=== PATIENT | male | born 1970 | race Caucasian/White ===

== ENCOUNTER 2017-09-08 13:17 | Emergency (ER) | payer BC | END 2017-09-08 13:50 | disposition home or self-care (01) | LOC: ER 13:17 | DX: K64.4 Residual hemorrhoidal skin tags (principal) | CPT/HCPCS: 99283 ==

== ENCOUNTER 2017-09-11 11:27 | Inpatient (IN) | payer BC ==
[2017-09-11] MEDS ORDERED: PROCHLORPERAZINE 25 MG SUPP.RECT. PR (11:45)
[2017-09-11] MEDS ORDERED: ACETAMINOPHEN 325 MG TABLET. PO (11:45)
[2017-09-11] MEDS ORDERED: CALCIUM CARBONATE 500 MG TAB.CHEW PO (11:45)
[2017-09-11] MEDS ORDERED: PROCHLORPERAZINE 10 MG/2 ML VIAL. IV ×2 (11:45→17:00)
[2017-09-11] MEDS ORDERED: oxyCODONE IR 5 MG TABLET PO (11:45)
[2017-09-11] MEDS ORDERED: ZOLPIDEM 5 MG TABLET. PO (11:45)
[2017-09-11] MEDS ORDERED: MAGNESIUM HYDROXIDE 2,400 MG/30 ML ORAL.SUSP. PO (11:45)
[2017-09-11] MEDS ORDERED: MAG HYDROX/ALUMINUM HYD/SIMETH 30 ML ORAL.SUSP PO (11:45)
[2017-09-11] MEDS: DOCUSATE SODIUM 100 MG CAPSULE. PO (11:52)
[2017-09-11] MEDS: IV 1/2 NORMAL SALINE 1,000 ML IV ×2 (12:34→20:25)
[2017-09-11] MEDS: MORPHINE SULFATE 2 MG/ML DISP.SYRIN. IV ×2 (12:35→14:45)
[2017-09-11] MEDS ORDERED: PIP/TAZO PER PHARMACY MC (13:15)
[2017-09-11] MEDS: PIPERACILLIN/TAZOBACTAM 3.375 GM in IV NORMAL SALINE 50ML 50 ML IV ×3 (13:24→19:14)
[2017-09-11] MEDS: VANCOMYCIN 2 GM in IV NORMAL SALINE 500ML BAG 500 ML IV (14:43)
[2017-09-11] MEDS: VANCOMYCIN PER PHARMACY MC (15:52)
[2017-09-11] MEDS ORDERED: BUPIVACAINE-EPI 0.25%-1:200000 50 ML VIAL. (16:17)
[2017-09-11] MEDS: IV RINGERS,LACTATED 1000ML 1,000 ML IV ×2 (16:50→19:47)
[2017-09-11] MEDS ORDERED: fentaNYL PF VIAL 100 MCG/2 ML VIAL IV (17:00)
[2017-09-11] MEDS ORDERED: MORPHINE SULFATE 2 MG/ML DISP.SYRIN. IV (17:00)
[2017-09-11] MEDS ORDERED: ONDANSETRON PF 4 MG/2 ML VIAL. IV (17:00)
[2017-09-11] MEDS ORDERED: fentaNYL PF VIAL 100 MCG/2 ML VIAL ×2 (17:48→19:25)
[2017-09-11] MEDS ORDERED: SUCCINYLCHOLINE 200 MG/10 ML VIAL. (18:03)
[2017-09-11] MEDS ORDERED: PROPOFOL 20 ML IV ×2 (18:58)
[2017-09-11] MEDS ORDERED: SEVOFLURANE 31 TO 60 MINUTES. IH (18:58)
[2017-09-11] MEDS ORDERED: ONDANSETRON PF 4 MG/2 ML VIAL. (18:58)
[2017-09-11] MEDS ORDERED: DEXAMETHASONE SOD PHOS 20 MG/5 ML VIAL. (18:58)
[2017-09-11] MEDS: IPRATRPIUM/ALBUTEROL 0.5/2.5MG 3 ML NEBU. NEB (19:14)
[2017-09-11] MEDS: fentaNYL PF VIAL 100 MCG/2 ML VIAL IV ×2 (19:29→19:45)
[2017-09-11] MEDS: LIDOCAINE 1% PF 2 ML VIAL. ID (19:47)
[2017-09-11] MEDS ORDERED: ALBUTEROL SULFATE 2.5 MG/3 ML NEBU. NEB (20:30)
[2017-09-11] MEDS: oxyCODONE/APAP 5/325 1 TAB TABLET PO (20:44)
[2017-09-11 23:17] LABS: BASO % 0 % (0-3); EOS % 0 % (0-3); HEMATOCRIT 35.4 % (39.0-53.0); HEMOGLOBIN 12.3 g/dL (13.0-17.5); LYMPH # 0.4 x10^3/uL (1.0-4.8); LYMPH % 2 % (24-48); MEAN CORPUSCULAR HEMOGLOBIN 31 pg (25-35); MEAN CORPUSCULAR HGB CONC 35 g/dL (31-37); MEAN CORPUSCULAR VOLUME 88 fL (79-100); MONO # 0.3 x10^3/uL (0.0-1.1); MONO % 2 % (0-9); NEUT # 17.8 x10^3uL (1.8-7.7); NEUT % 96 % (31-73); PLATELET COUNT 317 x10^3/uL (140-400); RED BLOOD COUNT 4.03 x10^6/uL (4.30-5.70); RED CELL DISTRIBUTION WIDTH 12.8 % (11.5-14.5); WHITE BLOOD COUNT 18.6 x10^3/uL (4.0-11.0)
[2017-09-11 23:18] LABS: ADD MAN DIFF? YES
[2017-09-11 23:28] LABS: ANION GAP 7 (6-14); BLOOD UREA NITROGEN 23 mg/dL (8-26); CALCIUM 8.8 mg/dL (8.5-10.1); CARBON DIOXIDE 26 mmol/L (21-32); CHLORIDE 97 mmol/L (98-107); GFR 35.8; GLUCOSE 211 mg/dL (70-99); POTASSIUM 4.6 mmol/L (3.5-5.1); SODIUM 130 mmol/L (136-145)
[2017-09-11 23:36] LABS: % BANDS 10 % (0-9); % BASOS 1 % (0-3); % LYMPHS 4 % (24-48); % SEGS 85 % (35-66); PLT ESTIMATE ADEQUATE (ADEQUATE)
[2017-09-11 23:38] LABS: TOXIC GRANULATION SLIGHT
[2017-09-12] MEDS: IPRATRPIUM/ALBUTEROL 0.5/2.5MG 3 ML NEBU. NEB ×7 (00:04→23:43)
[2017-09-12] MEDS: oxyCODONE/APAP 5/325 1 TAB TABLET PO ×4 (01:05→17:45)
[2017-09-12] MEDS: ONDANSETRON PF 4 MG/2 ML VIAL. IV (01:05)
[2017-09-12] MEDS: KETOROLAC 15 MG/ML VIAL. IV ×4 (01:05→17:41)
[2017-09-12 03:50] LABS: INR 1.2 (0.8-1.1); PROTHROMBIN TIME PATIENT 15.1 SEC (11.7-14.0)
[2017-09-12 04:01] LABS: VANC TR 19.3 mcg/mL (10.0-20.0)
[2017-09-12] MEDS: VANCOMYCIN PER PHARMACY MC ×2 (05:32→12:57)
[2017-09-12] MEDS: PIPERACILLIN/TAZOBACTAM 3.375 GM in IV NORMAL SALINE 50ML 50 ML IV ×4 (05:45→23:21)
[2017-09-12] MEDS: VANCOMYCIN 1.5 GM in IV NORMAL SALINE 500ML BAG 500 ML IV (10:36)
[2017-09-12] MEDS: IV 1/2 NORMAL SALINE 1,000 ML IV ×2 (10:38→17:42)
[2017-09-12] MEDS: MORPHINE SULFATE 2 MG/ML DISP.SYRIN. IV (16:07)
[2017-09-12] MEDS: LACTOBACILLUS RHAMNOSUS GG 1 CAPSULE. PO (23:21)
[2017-09-13] MEDS: IPRATRPIUM/ALBUTEROL 0.5/2.5MG 3 ML NEBU. NEB ×3 (03:05→11:12)
[2017-09-13] MEDS: VANCOMYCIN 1.5 GM in IV NORMAL SALINE 500ML BAG 500 ML IV (03:52)
[2017-09-13 04:34] LABS: HEMATOCRIT 32.1 % (39.0-53.0); HEMOGLOBIN 11.2 g/dL (13.0-17.5); MEAN CORPUSCULAR HEMOGLOBIN 31 pg (25-35); MEAN CORPUSCULAR HGB CONC 35 g/dL (31-37); MEAN CORPUSCULAR VOLUME 89 fL (79-100); PLATELET COUNT 296 x10^3/uL (140-400); RED BLOOD COUNT 3.63 x10^6/uL (4.30-5.70); RED CELL DISTRIBUTION WIDTH 12.9 % (11.5-14.5); WHITE BLOOD COUNT 12.1 x10^3/uL (4.0-11.0)
[2017-09-13 04:52] LABS: ALBUMIN 2.4 g/dL (3.4-5.0); ALBUMIN/GLOBULIN RATIO 0.6 (1.0-1.7); ALK PHOS 77 U/L (46-116); ALT (SGPT) 69 U/L (16-63); ANION GAP 9 (6-14); AST (SGOT) 35 U/L (15-37); BLOOD UREA NITROGEN 30 mg/dL (8-26); BUN/CREATININE RATIO 11 (6-20); CALCIUM 8.4 mg/dL (8.5-10.1); CARBON DIOXIDE 25 mmol/L (21-32); CHLORIDE 103 mmol/L (98-107); CREATININE 2.7 mg/dL (0.7-1.3); GFR 25.3; GLUCOSE 112 mg/dL (70-99); SODIUM 137 mmol/L (136-145); TOTAL BILIRUBIN 0.3 mg/dL (0.2-1.0); TOTAL PROTEIN 6.1 g/dL (6.4-8.2)
[2017-09-13] MEDS: IV 1/2 NORMAL SALINE 1,000 ML IV (04:57)
[2017-09-13] MEDS: oxyCODONE/APAP 5/325 1 TAB TABLET PO ×2 (04:59→11:17)
[2017-09-13] MEDS: PIPERACILLIN/TAZOBACTAM 3.375 GM in IV NORMAL SALINE 50ML 50 ML IV ×2 (06:00→11:58)
[2017-09-13 06:53] LABS: SEDIMENTATION RATE 36 (0-15)
[2017-09-13] MEDS: LACTOBACILLUS RHAMNOSUS GG 1 CAPSULE. PO (08:00)
[2017-09-13] MEDS: MORPHINE SULFATE 2 MG/ML DISP.SYRIN. IV (13:12)
== END 2017-09-13 14:05 | disposition home or self-care (01) | DRG 854 ==
LOC: 4 NORTH 09-12 10:46
PROC: 0D9P0ZZ Drainage of Rectum, Open Approach (ICD-10-PCS; principal; 2017-09-11 17:00)
DX: A41.9 Sepsis, unspecified organism (principal); E87.1 Hypo-osmolality and hyponatremia; K61.1 Rectal abscess; N17.9 Acute kidney failure, unspecified; G47.33 Obstructive sleep apnea (adult) (pediatric); E66.9 Obesity, unspecified; J44.9 Chronic obstructive pulmonary disease, unspecified; K59.00 Constipation, unspecified; Z68.33 Body mass index [BMI] 33.0-33.9, adult
CPT/HCPCS: 36415; 71045; 80048; 80053; 80202; 85007; 85025; 85027; 85610; 85651; 94640; 99285-25; A7015; G0379; J0330; J1100; J1885; J2270; J2405; J2543; J2704; J3010; J3370; J7040; J7620

== ENCOUNTER → 2017-09-22 | Outpatient (CLI) | payer BC ==
[2017-09-13 11:00] VITALS: BP 135/79
[~2017-09-22] MED LIST: AMOX1TAB61 PO; AZIT250T PO; HYDR25SU18 RC; OXYC-323 PO
== END | disposition home or self-care (01) ==
LOC: LAB 12:17
PROVIDERS: ATTEND Nurse Practitioner Family
DX: R19.7 Diarrhea, unspecified (principal); J44.9 Chronic obstructive pulmonary disease, unspecified; Z87.891 Personal history of nicotine dependence
CPT/HCPCS: 36415; 87324